=== PATIENT | male | born 2000 | race Caucasian/White ===

== ENCOUNTER 2022-11-08 08:55 | Outpatient (CLI) | payer SELFPAY ==
--- NOTE | 2022-11-08 08:45 | RT.EKG_ITS ---
APPROVED REPORT Exam: Resting ECG Reason for Exam: pre-employment screening Patient Location: [place] HR:86 bpm ECG Measurements Heart Rate 86 AXIS ID 108 P 43 QRSd 104 QRS 53 QT 374 T 19 QTc 448 Conclusion Sinus rhythm...normal P axis, V-rate 50- 99 Short ID interval...ID <110mS Normal Electrocardiogram
== END 2022-11-08 08:56 | disposition home or self-care (01) ==
PROVIDERS: Visit Provider Nurse Practitioner Family
DX: Z02.1 Encounter for pre-employment examination (principal)
CPT/HCPCS: 93005; 93010

== ENCOUNTER 2022-11-08 12:25 | Outpatient (CLI) | payer SELFPAY ==
--- NOTE | 2022-11-08 15:22 | W.PFT ---
Date of service: 11/08/22 Time of Service: 14:23 Pulmonary Function Test Result Indications: Occupation health clearance Interpretation Spirometry: Ther eis no airflow limitation. Impression Normal spirometry Clinical Correlation therefore is recommended.
== END 2022-11-08 12:26 | disposition home or self-care (01) ==
PROVIDERS: Visit Provider Nurse Practitioner Family
DX: Z02.1 Encounter for pre-employment examination (principal)
CPT/HCPCS: 94010